=== PATIENT | male | born 1975 | race Caucasian/White ===

== ENCOUNTER 2017-08-04 21:27 | Observation (INO) ==
[2017-08-04] MEDS ORDERED: NITROGLYCERIN 2% OINT 1 INCH/GM PACK TOP ONE (21:39)
[2017-08-04] MEDS ORDERED: TICAGRELOR 90 MG TABLET ONE ×2 (21:39→21:43)
[2017-08-04] MEDS ORDERED: ASPIRIN 325 MG TABLET ONE (21:40)
[2017-08-04] MEDS ORDERED: MORPHINE 10 MG/1 ML VIAL ONE (21:40)
[2017-08-04] MEDS ORDERED: NITROGLYCERIN 2% OINT 1 INCH/GM PACK TOP STA (21:44)
[2017-08-04] MEDS ORDERED: ASPIRIN 325 MG TABLET PO STA (21:44)
[2017-08-04] MEDS ORDERED: SODIUM CHLORIDE 0.9% 1,000 ML IV STA (21:44)
[2017-08-04] MEDS ORDERED: MORPHINE 4 MG/1 ML VIAL IV STA (21:44)
[2017-08-04] MEDS ORDERED: ONDANSETRON 4 MG/2 ML VIAL IV STA (21:44)
[2017-08-04] MEDS ORDERED: TICAGRELOR 90 MG TABLET PO STA (21:45)
[2017-08-04 22:04] LABS: Basophils # 0.1 10*3/uL (0.0-0.2); Basophils % 0.6 % (0.0-0.8); Eosinophils # 0.8 10*3/uL (0.0-0.87); Eosinophils % 5.3 % (0.00-10.9); Hematocrit 44.5 VOL% (42.0-52.0); Hemoglobin 14.8 GM/DL (14.0-18.0); Immature Granulocytes % 0.4 %; Immature Granulocytes Absolute 0.06 #; Lymphocytes # 7.6 10*3/uL (1.4-4.0); Lymphocytes % 51.4 % (21.2-54.2); Mean Corpuscular HGB Conc 33.3 GM/DL (32-36); Mean Corpuscular Hemoglobin 29 PG (27-34); Mean Corpuscular Volume 85.9 FL (87-102); Monocytes # 0.9 10*3/uL (0.11-0.8); Monocytes % 6.1 % (1.7-12.7); Neutrophils # 5.4 10*3/uL (1.4-7.4); Neutrophils % 36.2 % (38.7-73.9); Platelet Count 370 T/CUMM (130-400); Red Blood Count 5.18 MC/CUMM (3.8-5.5); Red Cell Distribution Width 13.4 % (9.3-17.3); White Blood Count 14.9 T/CUMM (4-12)
[2017-08-04] MEDS ORDERED: LIDOCAINE 1%/EPI INJ 20 ML VIAL ONE (22:04)
[2017-08-04] MEDS ORDERED: HEPARIN/NACL 0.9% 2 UNITS/ML 1,500 ML IV ONE (22:04)
[2017-08-04 22:16] LABS: PT Patient Result 10.1 SECS
[2017-08-04] MEDS ORDERED: MIDAZOLAM 2 MG/2 ML VIAL ONE (22:18)
[2017-08-04] MEDS ORDERED: fentaNYL 100 MCG/2 ML VIAL ONE (22:19)
[2017-08-04 22:25] LABS: Alanine Aminotransferase 28 U/L (16-61); Albumin 3.7 G/DL (3.4-5.0); Alkaline Phosphatase 71 U/L (45-117); Aspartate Amino Transferase 22 U/L (0-37); Bilirubin,Total < 0.39 MG/DL (0.2-1.0); Blood Urea Nitrogen 7 MG/DL (7-18); Calcium 8.5 MG/DL (8.5-10.1); Glucose 158 MG/DL (74-106); Osmolality,Calculated 279.4 MOS/KG (273-304); Potassium 3.4 MMOL/L (3.5-5.1); Sodium 140 MMOL/L (136-145)
[2017-08-04] MEDS ORDERED: ENOXAPARIN 60 MG/0.6 ML SYRINGE ONE (22:25)
[2017-08-04 22:34] LABS: Eosinophils 6 % (0-10); Giant Platelets Few; Lymphocytes 36 % (20-55); Platelet Estimate Adequate; Segmented Neutrophils 53 % (50-85); Total Cells Counted 100
[2017-08-04] MEDS ORDERED: TIROFIBAN 5,000 MCG/100 ML PREMIX IV ONE (22:34)
[2017-08-04] MEDS ORDERED: SODIUM CHLORIDE 0.45% 1,000 ML IV SCH (23:30)
[2017-08-04] MEDS ORDERED: TIROFIBAN 5,000 MCG/100 ML PREMIX IV SCH (23:30)
[2017-08-04] MEDS ORDERED: DOCUSATE SODIUM 100 MG CAPSULE PO PRN (23:50)
[2017-08-04] MEDS ORDERED: ZALEPLON 5 MG CAPSULE PO PRN (23:50)
[2017-08-04] MEDS ORDERED: guaiFENesin/DM ER 600-30 MG TABLET PO PRN (23:50)
[2017-08-04] MEDS: CARVEDILOL 3.125 MG TABLET PO SCH (23:58)
[2017-08-05 01:22] LABS: Basophils # 0.1 10*3/uL (0.0-0.2); Basophils % 0.3 % (0.0-0.8); Eosinophils # 0.2 10*3/uL (0.0-0.87); Hematocrit 40.6 VOL% (42.0-52.0); Hemoglobin 13.6 GM/DL (14.0-18.0); Immature Granulocytes % 0.7 %; Immature Granulocytes Absolute 0.12 #; Lymphocytes # 2.8 10*3/uL (1.4-4.0); Lymphocytes % 16.1 % (21.2-54.2); Mean Corpuscular HGB Conc 33.5 GM/DL (32-36); Mean Corpuscular Hemoglobin 28 PG (27-34); Mean Corpuscular Volume 84.2 FL (87-102); Monocytes # 0.8 10*3/uL (0.11-0.8); Monocytes % 4.8 % (1.7-12.7); Neutrophils # 13.5 10*3/uL (1.4-7.4); Neutrophils % 77.1 % (38.7-73.9); Platelet Count 328 T/CUMM (130-400); Red Blood Count 4.82 MC/CUMM (3.8-5.5); Red Cell Distribution Width 13.5 % (9.3-17.3); White Blood Count 17.5 T/CUMM (4-12)
[2017-08-05 01:55] LABS: CKMB % 6.9 %
[2017-08-05 01:59] LABS: Troponin I Only 69.4 NG/ML (0.00-0.045)
[2017-08-05] MEDS ORDERED: ALUM/MAG/SIMETH/LIDO VISC 1:1 30 ML BOTTLE PO ONE (02:10)
[2017-08-05] MEDS ORDERED: ALUMINUM/MAGNES/SIMETH MAX STR 30 ML UDCUP PO PRN (02:10)
[2017-08-05] MEDS: MORPHINE 4 MG/1 ML VIAL IV PRN ×3 (04:44→23:48)
[2017-08-05] MEDS: TICAGRELOR 90 MG TABLET PO SCH ×2 (08:22→22:17)
[2017-08-05] MEDS: ASPIRIN EC 81 MG TABLET PO SCH (08:22)
[2017-08-05] MEDS: CARVEDILOL 3.125 MG TABLET PO SCH ×2 (08:23→22:17)
[2017-08-05] MEDS: PANTOPRAZOLE 40 MG TABLET PO SCH (08:24)
[2017-08-05 08:58] LABS: Basophils % 0.3 % (0.0-0.8); Eosinophils # 0.2 10*3/uL (0.0-0.87); Eosinophils % 1.4 % (0.00-10.9); Hematocrit 41.8 VOL% (42.0-52.0); Hemoglobin 14.2 GM/DL (14.0-18.0); Immature Granulocytes % 0.5 %; Immature Granulocytes Absolute 0.08 #; Lymphocytes # 2.8 10*3/uL (1.4-4.0); Lymphocytes % 19.1 % (21.2-54.2); Mean Corpuscular Hemoglobin 29 PG (27-34); Mean Corpuscular Volume 84.3 FL (87-102); Mean Platelet Volume 10.1 FL (9.6-12.0); Monocytes # 1.1 10*3/uL (0.11-0.8); Monocytes % 7.7 % (1.7-12.7); Neutrophils # 10.4 10*3/uL (1.4-7.4); Platelet Count 290 T/CUMM (130-400); Red Blood Count 4.96 MC/CUMM (3.8-5.5); Red Cell Distribution Width 13.6 % (9.3-17.3); White Blood Count 14.6 T/CUMM (4-12)
[2017-08-05] MEDS ORDERED: CARVEDILOL 6.25 MG TABLET PO SCH (09:00)
[2017-08-05] MEDS ORDERED: LOSARTAN 25 MG TABLET PO SCH (09:00)
[2017-08-05 09:24] LABS: Risk Ratio 4.33; VLDL CHOLESTEROL 31.6 MG/DL
[2017-08-05 09:28] LABS: Calcium 8.4 MG/DL (8.5-10.1); Osmolality,Calculated 277.4 MOS/KG (273-304); Potassium 3.9 MMOL/L (3.5-5.1)
[2017-08-05] MEDS: clonazePAM 0.5 MG TABLET PO PRN ×2 (10:42→22:20)
[2017-08-05] MEDS: SODIUM CHLORIDE 0.45% 1,000 ML IV SCH ×2 (10:42→19:58)
[2017-08-05 12:41] LABS: Barbiturates Screen,Urine Negative (Negative); Benzodiazepines Screen,Urine Negative (Negative); Cannabinoid Screen,Urine Negative (Negative); Opiate Screen,Urine Positive (Negative); Phencyclidine Screen,Urine Negative (Negative)
[2017-08-05] MEDS ORDERED: KETOROLAC 30 MG/1 ML VIAL IV ONE (14:13)
[2017-08-05] MEDS ORDERED: MAGNESIUM HYDROXIDE SUSP 30 ML UDCUP PO PRN (15:08)
[2017-08-05] MEDS: ATORVASTATIN 40 MG TABLET PO SCH (22:17)
[2017-08-05] MEDS: ALUM/MAG/SIMETH/LIDO VISC 1:1 30 ML BOTTLE PO PRN (23:47)
[2017-08-06] MEDS: SODIUM CHLORIDE 0.45% 1,000 ML IV SCH ×3 (01:39→13:10)
[2017-08-06 04:58] LABS: Basophils # 0.1 10*3/uL (0.0-0.2); Basophils % 0.5 % (0.0-0.8); Eosinophils # 0.4 10*3/uL (0.0-0.87); Eosinophils % 2.6 % (0.00-10.9); Hematocrit 39.5 VOL% (42.0-52.0); Hemoglobin 12.9 GM/DL (14.0-18.0); Immature Granulocytes % 0.6 %; Immature Granulocytes Absolute 0.08 #; Lymphocytes # 5.4 10*3/uL (1.4-4.0); Lymphocytes % 40.6 % (21.2-54.2); Mean Corpuscular HGB Conc 32.7 GM/DL (32-36); Mean Corpuscular Hemoglobin 28 PG (27-34); Mean Corpuscular Volume 85.1 FL (87-102); Mean Platelet Volume 10.3 FL (9.6-12.0); Monocytes # 1.1 10*3/uL (0.11-0.8); Monocytes % 8.2 % (1.7-12.7); Neutrophils # 6.3 10*3/uL (1.4-7.4); Neutrophils % 47.5 % (38.7-73.9); Platelet Count 275 T/CUMM (130-400); Red Blood Count 4.64 MC/CUMM (3.8-5.5); Red Cell Distribution Width 13.9 % (9.3-17.3); White Blood Count 13.2 T/CUMM (4-12)
[2017-08-06 05:20] LABS: Calcium 8.5 MG/DL (8.5-10.1); Osmolality,Calculated 278.3 MOS/KG (273-304); Potassium 4.2 MMOL/L (3.5-5.1)
[2017-08-06 05:30] LABS: CKMB % 4.2 %
[2017-08-06 05:32] LABS: Troponin I Only 70.7 NG/ML (0.00-0.045)
[2017-08-06] MEDS: CARVEDILOL 3.125 MG TABLET PO SCH ×2 (08:46→21:45)
[2017-08-06] MEDS: ASPIRIN EC 81 MG TABLET PO SCH (08:46)
[2017-08-06] MEDS: TICAGRELOR 90 MG TABLET PO SCH ×2 (08:46→21:46)
[2017-08-06] MEDS: PANTOPRAZOLE 40 MG TABLET PO SCH (08:46)
[2017-08-06] MEDS: clonazePAM 0.5 MG TABLET PO PRN ×2 (08:50→21:45)
[2017-08-06] MEDS: MORPHINE 4 MG/1 ML VIAL IV PRN (09:36)
[2017-08-06] MEDS ORDERED: KETOROLAC 30 MG/1 ML VIAL IV ONE (11:55)
[2017-08-06] MEDS: NICOTINE 14 MG/24 HR PATCH TRANSDERM SCH (13:07)
[2017-08-06] MEDS: ATORVASTATIN 40 MG TABLET PO SCH (21:46)
[2017-08-07] MEDS: ALUM/MAG/SIMETH/LIDO VISC 1:1 30 ML BOTTLE PO PRN (01:00)
[2017-08-07 05:54] LABS: Basophils # 0.1 10*3/uL (0.0-0.2); Basophils % 0.5 % (0.0-0.8); Eosinophils # 0.4 10*3/uL (0.0-0.87); Eosinophils % 3.5 % (0.00-10.9); Hemoglobin 12.3 GM/DL (14.0-18.0); Immature Granulocytes % 0.6 %; Immature Granulocytes Absolute 0.07 #; Lymphocytes # 4.5 10*3/uL (1.4-4.0); Lymphocytes % 39.3 % (21.2-54.2); Mean Corpuscular HGB Conc 32.4 GM/DL (32-36); Mean Corpuscular Hemoglobin 28 PG (27-34); Mean Corpuscular Volume 86.2 FL (87-102); Mean Platelet Volume 10.1 FL (9.6-12.0); Monocytes % 8.4 % (1.7-12.7); Neutrophils # 5.5 10*3/uL (1.4-7.4); Neutrophils % 47.7 % (38.7-73.9); Platelet Count 246 T/CUMM (130-400); Red Blood Count 4.41 MC/CUMM (3.8-5.5); Red Cell Distribution Width 13.3 % (9.3-17.3); White Blood Count 11.5 T/CUMM (4-12)
[2017-08-07 06:10] LABS: Potassium 3.9 MMOL/L (3.5-5.1)
[2017-08-07 06:14] LABS: CKMB % 2.1 %
[2017-08-07 06:17] LABS: Troponin I Only 37.3 NG/ML (0.00-0.045)
[2017-08-07] MEDS: NICOTINE 14 MG/24 HR PATCH TRANSDERM SCH (08:24)
[2017-08-07] MEDS: CARVEDILOL 3.125 MG TABLET PO SCH (08:24)
[2017-08-07] MEDS: TICAGRELOR 90 MG TABLET PO SCH (08:24)
[2017-08-07] MEDS: PANTOPRAZOLE 40 MG TABLET PO SCH (08:24)
[2017-08-07] MEDS: ASPIRIN EC 81 MG TABLET PO SCH (08:25)
[2017-08-07 11:43] VITALS: BP 127/79
== END 2017-08-07 12:27 | disposition home or self-care (01) | DRG 247 ==
LOC: N.ED 21:27 → N.EDINP 21:27 → N.CC 22:15 → N.TELES 08-06 15:27
PROVIDERS: ADMIT Internal Medicine Interventional Cardiology; ATTEND Internal Medicine Interventional Cardiology
PROC: CLCCHCL (ICD-10-PCS; 2017-08-04 22:30)